=== PATIENT | female | born 1985 | race American Indian/Alaskan Native ===

== ENCOUNTER 2019-02-12 23:59 | Emergency (ER) | payer SELFPAY ==
[2019-02-13] MEDS ORDERED: KETOROLAC 30 MG/1 ML INJ IM ONE (02:12)
[2019-02-13] MEDS ORDERED: CYCLOBENZAPRINE 10 MG TAB PO ONE (02:12)
[2019-02-13] MEDS ORDERED: dexAMETHasone 20 MG/5 ML VIAL IM ONE (02:12)
--- NOTE | 2019-02-13 03:40 | Emergency Department Report ---
ED Back Pain/Injury HPI - General Chief Complaint: Back Pain/Injury Stated Complaint: LOWER BACK PAIN Time Seen by Provider: 02/13/19 02:12 Source: patient, family Limitations: Language Barrier - History of Present Illness Initial Comments: Ms. Gillis is a 33 y/o aaf who presents for low back after lift mother from floor yesterday. pain is described as 4/5 aching low back radiating to right lower leg. There is no weakness no paralysis no loss or decrease in bowel or bladder function. Pain is exacerbated by movement, pain is relieved by rest. pt remains amulatory to baseline per patient. MD Complaint: back injury Onset/Timin -: days(s) Similar Symptoms Previously: Yes Place: home Radiation: right leg Severity: moderate Severity scale (0 -10): 5 Quality: burning Consistency: intermittent Improves With: other (rest ) Worsens With: movement Context: while lifting, turning/twisting, bending Associated Symptoms: denies: numbness, difficulty urinating, incontinence, fever/chills - Related Data Previous Rx's Medication Instructions Recorded Last Taken Type Cyclobenzaprine [Flexeril] 10 mg PO TID PRN #30 tablet 02/13/19 Unknown Rx Menthol/Camphor [Delaplane [place] 1 applicatio TP QID PRN #1 tube 02/13/19 Unknown Rx Ointment] Naproxen 500 mg PO BID PRN #30 tablet 02/13/19 Unknown Rx ED Review of Systems ROS: Stated complaint: LOWER BACK PAIN Other details as noted in HPI Constitutional: denies: chills, fever Eyes: denies: eye pain, eye discharge, vision change ENT: denies: ear pain, throat pain Respiratory: denies: cough, shortness of breath, wheezing Cardiovascular: denies: chest pain, palpitations Endocrine: no symptoms reported Gastrointestinal: denies: abdominal pain, nausea, diarrhea Genitourinary: denies: urgency, dysuria, discharge Musculoskeletal: as per HPI, back pain, myalgia (right lower leg. ) Skin: denies: rash, lesions Neurological: denies: headache, weakness, paresthesias Psychiatric: denies: anxiety, depression Hematological/Lymphatic: denies: easy bleeding, easy bruising ED Past Medical Hx - Medications Home Medications: Home Medications Medication Instructions Recorded Confirmed Last Taken Type Cyclobenzaprine [Flexeril] 10 mg PO TID PRN #30 tablet 02/13/19 Unknown Rx Menthol/Camphor [Delaplane [place] 1 applicatio TP QID PRN #1 tube 02/13/19 Unknown Rx Ointment] Naproxen 500 mg PO BID PRN #30 tablet 02/13/19 Unknown Rx ED Physical Exam - General Limitations: Language Barrier General appearance: alert, in no apparent distress - Head Head exam: Present: atraumatic, normocephalic - Eye Eye exam: Present: normal appearance, EOMI - ENT ENT exam: Present: mucous membranes moist - Neck Neck exam: Present: normal inspection, full ROM. Absent: tenderness - Respiratory Respiratory exam: Present: normal lung sounds bilaterally. Absent: respiratory distress, wheezes, stridor, chest wall tenderness - Cardiovascular Cardiovascular Exam: Present: regular rate, normal rhythm, normal heart sounds - GI/Abdominal GI/Abdominal exam: Present: soft, normal bowel sounds. Absent: distended, tenderness - Rectal Rectal exam: Present: deferred, normal inspection - Extremities Exam Extremities exam: Present: normal inspection, full ROM, normal capillary refill. Absent: tenderness - Back Exam Back exam: Present: normal inspection, tenderness (no posterior vertebral point tenderness pos straight leg right ), muscle spasm, paraspinal tenderness. Absent: CVA tenderness (R), CVA tenderness (L), vertebral tenderness, rash noted - Expanded Back Exam Expanded Back exam: Absent: saddle anesthesia Back exam: Positive Straight Leg Raise: Right, Negative Straight Leg Raising: Left - Neurological Exam Neurological exam: Present: alert, oriented X3, normal gait - Psychiatric Psychiatric exam: Present: normal affect, normal mood - Skin Skin exam: Present: warm, dry, intact, normal color. Absent: rash ED Course Vital Signs 02/13/19 02/13/19 00:19 02:50 Temperature 98.8 F Pulse Rate 91 H Respiratory 20 16 Rate Blood Pressure 117/80 O2 Sat by Pulse 100 Oximetry ED Medical Decision Making - Medical Decision Making this low back strain, pt advises pain is relieve to 2/10 at this time, pt is ambulatory with steady gait , plan: dc to home with rx for nsaids, muscle relaxant, analgesic balm , moist heat therapy follow up with pcp in 2-3 days. pt dc'd to home in stable condition at this time. Critical care attestation.: If time is entered above; I have spent that time in minutes in the direct care of this critically ill patient, excluding procedure time. ED Disposition Clinical Impression: Low back strain Qualifiers: Encounter type: initial encounter Qualified Code(s): S39.012A - Strain of muscle, fascia and tendon of lower back, initial encounter Disposition: TO HOME OR SELFCARE Is pt being admited?: No Does the pt Need Aspirin: No Condition: Stable Prescriptions: Cyclobenzaprine [Flexeril] 10 mg PO TID PRN #30 tablet PRN Reason: Muscle Spasm Naproxen 500 mg PO BID PRN #30 tablet PRN Reason: pain Menthol/Camphor [Delaplane [place] Ointment] 1 applicatio TP QID PRN #1 tube PRN Reason: pain Referrals: PRIMARY CARE,MD [Primary Care Provider] - 3-5 Days [facility] [Outside] - 3-5 Days Forms: Work/School Release Form(ED) Time of Disposition: 03:46
[2019-02-13 04:12] VITALS: BP 120/66
== END 2019-02-13 04:00 | disposition home or self-care (01) ==
LOC: ED 23:59
DX: S39.012A Strain of muscle, fascia and tendon of lower back, initial encounter (principal); Z79.899 Other long term (current) drug therapy; X50.0XXA Overexertion from strenuous movement or load, initial encounter; Y93.89 Activity, other specified; Y92.488 Other paved roadways as the place of occurrence of the external cause; Y99.8 Other external cause status
CPT/HCPCS: 96372; 99283; J1100; J1885

== ENCOUNTER 2019-03-05 21:22 | Emergency (ER) | payer SELFPAY ==
[2019-03-05 21:32] VITALS: BP 143/93
--- NOTE | 2019-03-05 23:40 | Emergency Department Report ---
Chief Complaint: Medical Clearance Stated Complaint: ACCIDENT NEEDLE STICK Time Seen by Provider: 03/05/19 23:32 - HPI History of Present Illness: Mrs. 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 The zinc miner blasting of the [facility] [place] [facility] is at the bedside giving additional information. Mrs. Gillis was stuck with a dirty insulin needle. She had administer the insulin to the patient. Then while distracted, then needle was inserted in the right thumb. [facility] [facility] [employer] is certain that patient is negative for HIV hepatitis B and hepatitis C. Patient is currently being treated for a spider bite. She wanted to know if Mrs. Beasley has risk of bacterial. I evaluated the right thumb. No indication of trauma or puncture. I ensured Ms. Gillis and her employer that there is a very low possibility of bacterial infection. Mrs. Gillis and the zinc miner bl[employer] of the [facility] [place] [facility] both understand to ensure that source patient is negative for HIV, hepatitis B and hepatitis C. The [facility] [facility] [employer] is 100% certain that the patient is negative for these blood-borne diseases. Medical screening exam performed completed. No acute emergent condition exists. These tests are required for admission to her facility. - Exam Vital Signs: Vital Signs 03/05/19 21:31 Temperature 98.3 F Pulse Rate 102 H Respiratory 18 Rate Blood Pressure 143/93 O2 Sat by Pulse 97 Oximetry MSE screening note: Focused history and physical exam performed. Due to findings the following was ordered: ED Disposition for MSE Clinical Impression: Needle stick injury of finger Disposition: Z-07 MED SCREENING EXAM-LEFT Condition: Stable Instructions: Needle Stick Injuries (ED)
== END 2019-03-06 | disposition left against medical advice (07) ==
LOC: ED 21:22
DX: S69.91XA Unspecified injury of right wrist, hand and finger(s), initial encounter (principal); W46.1XXA Contact with contaminated hypodermic needle, initial encounter; Y93.89 Activity, other specified; Y92.89 Other specified places as the place of occurrence of the external cause; Y99.8 Other external cause status